=== PATIENT | male | born 1970 | race Caucasian/White ===

== ENCOUNTER 2017-05-11 21:55 | Emergency (ER) | payer MEDICAID ==
[2014-11-23 15:17] VITALS: BMI 23.2
[~2017-05-11 21:55] MED LIST: ATIVAN1 MG PO
== END 2017-05-11 23:15 | disposition home or self-care (01) ==
LOC: D.ER 21:55
DX: S43.401A Unspecified sprain of right shoulder joint, initial encounter (principal); X58.XXXA Exposure to other specified factors, initial encounter; Y93.89 Activity, other specified; Y92.89 Other specified places as the place of occurrence of the external cause; F17.200 Nicotine dependence, unspecified, uncomplicated

== ENCOUNTER 2017-06-10 18:05 | Emergency (ER) | payer MEDICAID ==
[2014-11-23 15:17] VITALS: BMI 23.2
[2017-06-10 18:47] LABS: BASOPHILS 1.6 % (0-2); EOSINOPHILS 2.4 % (0-7); HEMATOCRIT 46.2 % (42.0-54.0); HEMOGLOBIN 16.5 g/dL (13.5-17.5); IMMATURE GRANULOCYTES 0.3 % (0-5); LYMPHOCYTES 35.7 % (15-50); MCH 34.5 pg (26.0-34.0); MCHC 35.7 g/dL (31.0-37.0); MCV 96.7 fL (80.0-100.0); MEAN PLATELET VOLUME 9.2 fL (7.4-10.4); MONOCYTES 7.9 % (2-11); NEUTROPHILS 52.1 % (40-80); RBC 4.78 10x6/uL (4.20-6.10); RDW 12.5 % (11.5-14.5); WBC 5.8 10x3/uL (4.8-10.8)
[2017-06-10 18:49] LABS: PLATELET COUNT 150 10x3/uL (130-400)
[2017-06-10 19:03] LABS: INR 0.93 (0.85-1.17); PROTIME 12.1 SECONDS (11.6-15.0)
[2017-06-10 19:19] LABS: ALKALINE PHOSPHATASE 64 U/L (46-116); ALT (SGPT) 34 U/L (10-68); CALC OSMOLALITY 286 mosm/kg (275-300); CALCIUM 8.3 mg/dL (8.5-10.1); CARBON DIOXIDE 25.9 mmol/L (21.0-32.0); CHLORIDE - SERUM 107 mmol/L (98-107); CREATININE - SERUM 0.8 mg/dL (0.6-1.3); GLUCOSE 95 mg/dL (74-106); POTASSIUM - SERUM 4.1 mmol/L (3.5-5.1); PROTEIN - SERUM 8.1 g/dL (6.4-8.2); SODIUM 145 mmol/L (136-145); UREA NITROGEN 6 mg/dL (7-18); eGFR NON AFRICAN AMERICAN > 90 mL/min (90-120)
[2017-06-10 19:21] LABS: MAGNESIUM - SERUM 1.8 mg/dL (1.8-2.4)
[2017-06-10 19:33] LABS: LITHIUM 0.32 mmol/L (0.60-1.20); SALICYLATES 2.3 mg/dL (2.8-20.0)
[2017-06-10 20:27] LABS: UDS - AMPHET NEGATIVE QUAL (NEGATIVE); UDS - BARB NEGATIVE QUAL (NEGATIVE); UDS - BENZO NEGATIVE QUAL (NEGATIVE); UDS - COCAINE NEGATIVE QUAL (NEGATIVE); UDS - OPIATE NEGATIVE QUAL (NEGATIVE); UDS - PCP NEGATIVE QUAL (NEGATIVE); UDS - THC NEGATIVE QUAL (NEGATIVE)
== END 2017-06-10 21:37 | disposition home or self-care (01) ==
LOC: D.ER 18:05
PROVIDERS: Emergency Medicine; Family Medicine
DX: F10.129 Alcohol abuse with intoxication, unspecified (principal)

== ENCOUNTER 2018-04-23 13:39 | Emergency (ER) | payer MEDICAID ==
[~2018-04-23] VITALS: Ht 175.3 cm; Wt 68.2 kg
[2018-04-23 13:43] VITALS: Ht 175.3 cm; Wt 68.2 kg
[2018-04-23 14:13] LABS: APPEARANCE CLEAR (CLEAR); BILIRUBIN NEGATIVE (NEGATIVE); COLOR STRAW (YELLOW); GLUCOSE NEGATIVE (NEGATIVE); KETONE NEGATIVE (NEGATIVE); NITRITE NEGATIVE (NEGATIVE); PROTEIN NEGATIVE (NEGATIVE); SPECIFIC GRAVITY 1.005 (1.005-1.020); UROBILINOGEN NORMAL (NORMAL)
[2018-04-23 15:20] VITALS: BP 138/87
[2018-04-23] MEDS ORDERED: ROBAXIN500 MG PO (16:12)
[2018-04-23] MEDS ORDERED: TORADOL10 MG PO (16:12)
== END 2018-04-23 16:40 | disposition home or self-care (01) ==
LOC: D.ER 13:39
PROVIDERS: Family Medicine
DX: M54.16 Radiculopathy, lumbar region (principal); F17.200 Nicotine dependence, unspecified, uncomplicated

== ENCOUNTER 2018-11-05 19:41 | Emergency (ER) | payer MEDICAID ==
[~2018-11-05] VITALS: Ht 175.3 cm; Wt 65.9 kg
[~2018-11-05 19:41] MED LIST changes: +ROBAXIN500 MG PO; +TORADOL10 MG PO
[2018-11-05 19:46] VITALS: Ht 175.3 cm; Wt 65.9 kg
[2018-11-05 20:23] LABS: ALBUMIN 4.2 g/dL (3.4-5.0); ALKALINE PHOSPHATASE 68 U/L (46-116); ALT (SGPT) 192 U/L (10-68); BILIRUBIN - TOTAL 1.07 mg/dL (0.2-1.3); CALC OSMOLALITY 266 mosm/kg (275-300); CALCIUM 9.6 mg/dL (8.5-10.1); CARBON DIOXIDE 25.1 mmol/L (21.0-32.0); CHLORIDE - SERUM 95 mmol/L (98-107); CREATININE - SERUM 0.9 mg/dL (0.6-1.3); GLUCOSE 93 mg/dL (74-106); MAGNESIUM - SERUM 1.4 mg/dL (1.8-2.4); POTASSIUM - SERUM 3.6 mmol/L (3.5-5.1); PROTEIN - SERUM 7.8 g/dL (6.4-8.2); SODIUM 134 mmol/L (136-145); UREA NITROGEN 10 mg/dL (7-18); eGFR NON AFRICAN AMERICAN > 90 mL/min (90-120)
[2018-11-05 20:24] LABS: UDS - AMPHET NEGATIVE QUAL (NEGATIVE); UDS - BARB NEGATIVE QUAL (NEGATIVE); UDS - BENZO NEGATIVE QUAL (NEGATIVE); UDS - COCAINE NEGATIVE QUAL (NEGATIVE); UDS - OPIATE NEGATIVE QUAL (NEGATIVE); UDS - PCP NEGATIVE QUAL (NEGATIVE); UDS - THC NEGATIVE QUAL (NEGATIVE)
[2018-11-05 20:28] LABS: APPEARANCE CLEAR (CLEAR); BILIRUBIN NEGATIVE (NEGATIVE); COLOR YELLOW (YELLOW); GLUCOSE NEGATIVE (NEGATIVE); KETONE NEGATIVE (NEGATIVE); NITRITE NEGATIVE (NEGATIVE); PROTEIN NEGATIVE (NEGATIVE); UROBILINOGEN NORMAL (NORMAL)
[2018-11-05 20:30] LABS: BASOPHILS 1.1 % (0-2); EOSINOPHILS 1.7 % (0-7); HEMATOCRIT 43.4 % (42.0-54.0); HEMOGLOBIN 16.2 g/dL (13.5-17.5); IMMATURE GRANULOCYTES 0.2 % (0-5); LYMPHOCYTES 41.2 % (15-50); MCH 34.9 pg (26.0-34.0); MCHC 37.3 g/dL (31.0-37.0); MCV 93.5 fL (80.0-100.0); MEAN PLATELET VOLUME 10.7 fL (7.4-10.4); MONOCYTES 12.1 % (2-11); NEUTROPHILS 43.7 % (40-80); RBC 4.64 10x6/uL (4.20-6.10); RDW 12.1 % (11.5-14.5); WBC 5.3 10x3/uL (4.8-10.8)
[2018-11-05 20:40] LABS: PLATELET COUNT 87 10x3/uL (130-400)
--- NOTE | 2018-11-05 20:51 | NUR ---
DR. ARELLANO NOTIFIED AND SITTER ORDERED. SITTER AT BEDSIDE. NOTIFIED CHARGE NURSE AND ATTENDING IN REGARDS TO ASSESSMENT FINDINGS. RESOURCES GIVEN TO PT AND SAFETY PLAN INITIATED.
[2018-11-05 21:34] LABS: PLATELET ESTIMATE DECREASED
[2018-11-06 04:50] VITALS: BP 128/76
== END 2018-11-06 06:42 ==
LOC: D.ER 19:41
PROVIDERS: Family Medicine
DX: R45.851 Suicidal ideations (principal); F32.9 Major depressive disorder, single episode, unspecified